=== PATIENT | female | born 1980 | race Hispanic/Latino ===

== ENCOUNTER 2017-11-05 11:40 | Inpatient (IN) | payer OTHER ==
[~2017-11-05] VITALS: Ht 167.6 cm; Wt 99.8 kg
[2017-11-05] MEDS ORDERED: LACTATED RINGERS 1000ML 1,000 ML IV PRN (11:43)
[2017-11-05] MEDS ORDERED: AMPICILLIN 2GM+NS 100ML 100 ML IV SCH (11:45)
[2017-11-05 12:56] LABS: BASOPHILS % (AUTO) 0.3 % (0.0-5.0); EOSINOPHILS % (AUTO) 0.3 % (0.0-8.0); HEMATOCRIT 39.5 % (36-48); LYMPHOCYTES % (AUTO) 19.4 % (21.0-51.0); MEAN CORPUSCULAR HEMOGLOBIN 27.7 pg (27.0-33.0); MEAN CORPUSCULAR HGB CONC 33.6 g/dL (32.0-36.0); MEAN CORPUSCULAR VOLUME 82.4 fL (79-99); MONOCYTES % (AUTO) 8.4 % (3.0-13.0); NEUTROPHILS % (AUTO) 71.6 % (40.0-77.0); PLATELET COUNT (AUTO) 203 K/uL (130-400); RED BLOOD CELL COUNT(AUTO) 4.79 MIL/uL (4.00-5.50); WHITE BLOOD COUNT (AUTO) 8.9 K/uL (4.8-10.8)
[2017-11-05 12:58] LABS: APPEARANCE,URINE Cloudy (CLEAR); BILIRUBIN,URINE Negative (NEGATIVE); COLOR,URINE Yellow (YELLOW); GLUCOSE, URINE (UA) Negative (NEGATIVE); KETONES,URINE Negative (NEGATIVE); LEUKOCYTE ESTERASE ,URINE Large (NEGATIVE); NITRATE,URINE Negative (NEGATIVE); OCCULT BLOOD,URINE Negative (NEGATIVE); PH,URINE 7.5 (5.0-8.0); PROTEIN,URINE Negative (NEGATIVE); UROBILINOGEN,URINE 0.2 mg/dL (0.2-1.0)
[2017-11-05 13:04] LABS: CREATININE 0.6 mg/dL (0.5-1.5); POTASSIUM 4.6 mmol/L (3.5-5.1)
[2017-11-05 13:04] LABS: BACTERIA,URINE Rare /HPF (None Seen); SQUAMOUS EPITHELIAL CELL,UR Many /LPF (0-2)
[2017-11-05 13:08] LABS: ALBUMIN 2.9 g/dL (3.5-5.0); BILIRUBIN,TOTAL 0.3 mg/dL (0.2-1.0); TOTAL PROTEIN, SERUM 6.4 g/dL (6.0-8.3); URIC ACID 4.1 mg/dL (2.6-7.2)
[2017-11-05 13:23] LABS: INR 0.87 (0.85-1.15); PARTIAL THROMBOPLASTIN TIME 26.1 SEC (26.3-35.5); PROTHROMBIN TIME 9.2 SEC (9.6-11.6)
[2017-11-05] MEDS: AMPICILLIN 1GM+NS 50ML 50 ML IV SCH ×2 (16:55→20:55)
[2017-11-05] MEDS: OXYTOCIN 10 USP UNITS/ML 20 UNIT in LACTATED RINGERS 1000ML 1,000 ML IV SCH (23:04)
[2017-11-06] MEDS: AMPICILLIN 1GM+NS 50ML 50 ML IV SCH ×4 (00:54→15:45)
[2017-11-06] MEDS ORDERED: LACTATED RINGERS 1000ML 1,000 ML IV ONE ×3 (02:49→13:20)
[2017-11-06] MEDS ORDERED: OXYTOCIN 10 USP UNITS/ML ONE ×3 (02:50→13:20)
[2017-11-06] MEDS: OXYTOCIN 10 USP UNITS/ML 20 UNIT in LACTATED RINGERS 1000ML 1,000 ML IV SCH (03:26)
[2017-11-06] MEDS ORDERED: OXYTOCIN 10 USP UNITS/ML 20 UNIT in LACTATED RINGERS 1000ML 1,000 ML IV SCH (03:30)
[2017-11-06] MEDS ORDERED: PROMETHAZINE HCL 25 MG/ML 1ML AMPULE IM SCH (07:45)
[2017-11-06] MEDS ORDERED: MEPERIDINE-PF 50 MG/ML SYG SIVP SCH (07:45)
[2017-11-06] MEDS ORDERED: WITCH HAZEL 1 PAD TP PRN (13:00)
[2017-11-06] MEDS ORDERED: ACETAMINOPHEN 325 MG TAB PO PRN (13:00)
[2017-11-06] MEDS ORDERED: BENZOCAINE/LANOLIN/ALOE VERA 60 ML AEROSOL TP PRN (13:00)
[2017-11-06] MEDS ORDERED: DIPH,PERTUSS(ACELL),TET VAC/PF 0.5 ML VIAL IM PRN (13:00)
[2017-11-06] MEDS ORDERED: OXYTOCIN-LR 20 UNITS/1000 ML 1,000 ML IV SCH (13:00)
[2017-11-06] MEDS ORDERED: MEASLES/MUMPS/RUBELLA VACCINE, LIVE 0.5 ML/VIAL SQ PRN (13:00)
[2017-11-06] MEDS ORDERED: LANOLIN 30GM OINTMENT TP PRN (13:00)
[2017-11-06 13:18] LABS: HEPATITIS Bs ANTIGEN SCREEN P Negative (Negative)
[2017-11-06 13:55] VITALS: BP 119/82
[2017-11-06] MEDS ORDERED: GLYB5TAB8 PO (14:09)
[2017-11-06] MEDS ORDERED: PNV1TABL17 PO (14:09)
[2017-11-06] MEDS: IBUPROFEN 600 MG TABLET PO PRN (15:57)
[2017-11-06 16:02] VITALS: BP 135/70
[2017-11-06 19:34] VITALS: BP 126/77
[2017-11-06] MEDS: DOCUSATE SODIUM 100 MG CAP PO SCH (20:52)
[2017-11-06 23:18] VITALS: BP 120/59
[2017-11-07 03:23] VITALS: BP 120/71
[2017-11-07] MEDS: IBUPROFEN 600 MG TABLET PO PRN ×2 (04:30→15:25)
[2017-11-07 06:04] LABS: HEMATOCRIT 33.1 % (36-48); MEAN CORPUSCULAR HEMOGLOBIN 27.8 pg (27.0-33.0); MEAN CORPUSCULAR HGB CONC 33.5 g/dL (32.0-36.0); MEAN CORPUSCULAR VOLUME 83.1 fL (79-99); PLATELET COUNT (AUTO) 151 K/uL (130-400); RED BLOOD CELL COUNT(AUTO) 3.99 MIL/uL (4.00-5.50); RED CELL DISTRIBUTION WIDTH 15.2 % (11.0-15.5); WHITE BLOOD COUNT (AUTO) 11.2 K/uL (4.8-10.8)
[2017-11-07 07:28] VITALS: BP 128/83
[2017-11-07] MEDS: DOCUSATE SODIUM 100 MG CAP PO SCH ×2 (08:46→20:50)
[2017-11-07 11:30] VITALS: BP 127/80
[2017-11-07] MEDS ORDERED: DIPH,PERTUSS(ACELL),TET VAC/PF 0.5 ML VIAL IM SCH (15:00)
[2017-11-07 16:04] VITALS: BP 138/79
[2017-11-07 19:21] VITALS: BP 137/77
[2017-11-07 22:58] VITALS: BP 139/85
[2017-11-08 03:07] VITALS: BP 129/89
[2017-11-08 07:55] VITALS: BP 125/65
[2017-11-08] MEDS: DOCUSATE SODIUM 100 MG CAP PO SCH (09:07)
[2017-11-08] MEDS: IBUPROFEN 600 MG TABLET PO PRN (09:08)
[2017-11-08 11:20] VITALS: BP 117/82
== END 2017-11-08 12:15 | disposition home or self-care (01) | DRG 560 ==
LOC: LDH 11:40 → WSH 11-06 13:55
PROVIDERS: ADMIT Obstetrics & Gynecology; ATTEND Obstetrics & Gynecology
PROC: 10E0XZZ Delivery of Products of Conception, External Approach (ICD-10-PCS; principal; 2017-11-06)
PROC: 0HQ9XZZ Repair Perineum Skin, External Approach (ICD-10-PCS; 2017-11-06)
PROC: 10907ZC Drainage of Amniotic Fluid, Therapeutic from Products of Conception, Via Natural or Artificial Opening (ICD-10-PCS; 2017-11-06)
PROC: 3E033VJ Introduction of Other Hormone into Peripheral Vein, Percutaneous Approach (ICD-10-PCS; 2017-11-06)
PROC: 3E0234Z Introduction of Serum, Toxoid and Vaccine into Muscle, Percutaneous Approach (ICD-10-PCS; 2017-11-06)
DX: O16.4 Unspecified maternal hypertension, complicating childbirth (principal); O24.425 Gestational diabetes mellitus in childbirth, controlled by oral hypoglycemic drugs; O99.824 Streptococcus B carrier state complicating childbirth; O70.0 First degree perineal laceration during delivery; O69.81X0 Labor and delivery complicated by cord around neck, without compression, not applicable or unspecified; Z53.20 Procedure and treatment not carried out because of patient's decision for unspecified reasons; Z37.0 Single live birth; Z3A.38 38 weeks gestation of pregnancy; Z23 Encounter for immunization
CPT/HCPCS: 36415; 80053; 81001; 84550; 85025; 85027; 85384; 85610; 85730; 86592; 86850; 86900; 86901; 87340; 90715; A4351; J0290; J2175; J2550; J2590; J7120

== ENCOUNTER 2022-09-02 05:34 | Observation (INO) | payer OTHER ==
[2022-09-01 12:00] LABS: HEMATOCRIT 44.8 % (36-48); MEAN CORPUSCULAR HEMOGLOBIN 26.9 pg (27.0-33.0); MEAN CORPUSCULAR HGB CONC 32.6 g/dL (32.0-36.0); MEAN CORPUSCULAR VOLUME 82.7 fL (79-99); PLATELET COUNT (AUTO) 241 K/uL (130-400); RED BLOOD CELL COUNT(AUTO) 5.42 MIL/uL (4.00-5.50); RED CELL DISTRIBUTION WIDTH 13.7 % (11.0-15.5); WHITE BLOOD COUNT (AUTO) 7.4 K/uL (4.8-10.8)
[2022-09-01 12:15] LABS: INR 0.98 (0.85-1.15); PROTHROMBIN TIME 10.7 SEC (9.6-11.6)
[2022-09-01 12:16] LABS: PARTIAL THROMBOPLASTIN TIME 30.2 SEC (26.3-35.5)
[2022-09-01 12:21] LABS: APPEARANCE,URINE CLEAR (CLEAR); BILIRUBIN,URINE NEGATIVE (NEGATIVE); COLOR,URINE LIGHT-YELLOW (YELLOW); GLUCOSE, URINE (UA) NEGATIVE (NEGATIVE); KETONES,URINE NEGATIVE (NEGATIVE); LEUKOCYTE ESTERASE ,URINE NEGATIVE Leu/uL (NEGATIVE); NITRATE,URINE NEGATIVE (NEGATIVE); OCCULT BLOOD,URINE NEGATIVE (NEGATIVE); PH,URINE 6.5 (5.0-8.0); PROTEIN,URINE NEGATIVE (NEGATIVE); UROBILINOGEN,URINE 0.2 mg/dL (0.2-1.0)
[2022-09-01 12:32] LABS: LYMPHOCYTES % (MANUAL) 30 % (22-44); MAN.DIFF COMMENT-IMPRESSION MANUAL DIFFERENTIAL; MONOCYTES % (MANUAL) 3 % (2-9); PLATELET MORPHOLOGY COMMENT ADEQUATE; SEGMENTED NEUTROPHILS % 67 % (40-70)
[2022-09-01 14:05] VITALS: BP 136/61
[~2022-09-02] VITALS: Ht 172.7 cm; Wt 94.8 kg
[2022-09-02] VITALS (24 sets, daily range): BP systolic 112–154; BP diastolic 59–94
[~2022-09-02 05:34] MED LIST: KETAMINE HCL 100 MG/ML 5ML VIAL IJ ONE; LEVO137C4 PO; MAGNESIUM SULFATE 1 GM/2 ML VIAL ONE; MONT-39 PO
[2022-09-02] MEDS ORDERED: LACTATED RINGERS 1000ML 1,000 ML IV ONE (05:55)
[2022-09-02] MEDS ORDERED: CEFAZOLIN SODIUM 2 GM VIAL ONE (05:55)
[2022-09-02] MEDS ORDERED: FENTANYL CITRATE PF 50 MCG/1 ML 5ML AMP IV ONE (07:01)
[2022-09-02] MEDS ORDERED: ONDANSETRON 4MG INJ ONE (07:01)
[2022-09-02] MEDS ORDERED: MIDAZOLAM HCL 1 MG/ML 2ML VIAL ONE (07:01)
[2022-09-02] MEDS ORDERED: ROCURONIUM 10MG/1ML SYR 10 MG/ML ML ONE (07:01)
[2022-09-02] MEDS ORDERED: PROPOFOL 10 MG/ML 20ML VIAL IV ONE (07:01)
[2022-09-02] MEDS ORDERED: ACETAMINOPHEN 500 MG TABLET ONE (07:09)
[2022-09-02] MEDS ORDERED: ACETAMINOPHEN 500 MG TABLET PO SCH (07:30)
[2022-09-02] MEDS ORDERED: CEFAZOLIN SODIUM 2 GM VIAL IVPB ONE (08:00)
[2022-09-02] MEDS ORDERED: FENTANYL CITRATE PF 50 MCG/1 ML 2ML VIAL ONE (09:42)
[2022-09-02] MEDS ORDERED: KETOROLAC 30MG VIAL (30MG/ML) ONE ×2 (09:59→10:02)
[2022-09-02] MEDS ORDERED: GLYCOPYRROLATE 1 MG/5 ML SYRINGE ONE (10:05)
[2022-09-02] MEDS ORDERED: NEOSTIGMINE 5MG/5ML SYR IV ONE (10:06)
[2022-09-02] MEDS ORDERED: IBUPROFEN 600 MG TABLET PO PRN (12:00)
[2022-09-02] MEDS ORDERED: BISACODYL 10 MG SUPP.RECT RC PRN (12:00)
[2022-09-02] MEDS ORDERED: ACETAMINOPHEN WITH CODEINE 1 TAB TAB PO PRN (12:00)
[2022-09-02] MEDS ORDERED: PROMETHAZINE HCL 25 MG/ML 1ML AMPULE IM PRN (12:00)
[2022-09-02] MEDS ORDERED: ONDANSETRON 4MG INJ IVP PRN (12:00)
[2022-09-02] MEDS: PROMETHAZINE HCL 25 MG/ML 1ML AMPULE IM PRN ×2 (12:03→19:23)
[2022-09-02] MEDS: MEPERIDINE-PF 75 MG/ML SYG IM PRN ×2 (12:04→19:24)
[2022-09-02] MEDS: DEXTROSE 5 %-0.45 % NACL 1,000 ML IV PRN ×2 (12:43→19:36)
[2022-09-02] MEDS: NITROFURANTOIN MONOHYD/M-CRYST 100 MG CAPSULE PO SCH (20:43)
[2022-09-03 03:57] VITALS: BP 121/62
[2022-09-03] MEDS: DEXTROSE 5 %-0.45 % NACL 1,000 ML IV PRN (04:47)
[2022-09-03 06:04] LABS: HEMATOCRIT 36.9 % (36-48); MEAN CORPUSCULAR HEMOGLOBIN 26.9 pg (27.0-33.0); MEAN CORPUSCULAR HGB CONC 32.8 g/dL (32.0-36.0); RED BLOOD CELL COUNT(AUTO) 4.5 MIL/uL (4.00-5.50); RED CELL DISTRIBUTION WIDTH 13.3 % (11.0-15.5)
[2022-09-03] MEDS ORDERED: HYDROCODONE/ACETAMINOPHEN 5/325 MG TAB PO PRN (07:00)
[2022-09-03 07:21] VITALS: BP 105/58
[2022-09-03] MEDS: IBUPROFEN 800 MG TAB PO PRN ×2 (08:00→14:34)
[2022-09-03] MEDS: NITROFURANTOIN MONOHYD/M-CRYST 100 MG CAPSULE PO SCH ×2 (08:00→20:42)
[2022-09-03] MEDS: DOCUSATE SODIUM 100 MG CAP PO PRN ×2 (08:00→20:42)
[2022-09-03] MEDS: SIMETHICONE 80 MG TAB.CHEW PO PRN ×2 (08:00→20:42)
[2022-09-03 11:10] VITALS: BP 123/80
[2022-09-03 17:00] VITALS: BP 145/72
[2022-09-03 19:42] VITALS: BP 130/86
[2022-09-03] MEDS: ACETAMINOPHEN WITH CODEINE 1 TAB TAB PO PRN (20:45)
[2022-09-03 23:43] VITALS: BP 107/63
[2022-09-04 04:13] VITALS: BP 137/77
[2022-09-04] MEDS: ACETAMINOPHEN WITH CODEINE 1 TAB TAB PO PRN (05:23)
[2022-09-04 07:20] VITALS: BP 122/88
[2022-09-04] MEDS: SIMETHICONE 80 MG TAB.CHEW PO PRN (08:56)
[2022-09-04] MEDS: DOCUSATE SODIUM 100 MG CAP PO PRN (08:56)
[2022-09-04] MEDS: NITROFURANTOIN MONOHYD/M-CRYST 100 MG CAPSULE PO SCH (08:56)
[2022-09-04] MEDS: IBUPROFEN 800 MG TAB PO PRN (08:58)
[2022-09-04 11:47] VITALS: BP 132/71
== END 2022-09-04 13:15 | disposition home or self-care (01) ==
LOC: DAH 05:34 → WSH 05:35 → DAH 05:35
PROVIDERS: ADMIT Obstetrics & Gynecology; ATTEND Obstetrics & Gynecology
DX: N92.1 Excessive and frequent menstruation with irregular cycle (principal); Z20.822 Contact with and (suspected) exposure to COVID-19; N94.6 Dysmenorrhea, unspecified; N81.10 Cystocele, unspecified; N81.6 Rectocele; N39.3 Stress incontinence (female) (male); K46.9 Unspecified abdominal hernia without obstruction or gangrene
CPT/HCPCS: 84703; 85025; 85610; 85730; 86850; 86900; 86901; 87426; 81003; 36415 ×2; 58263; 57265; 57288; 96372; 85027; G0378 ×49; A4663; A4351; A4606; A4344; J7120; J3010 ×2; J3490 ×2; J2710; J2550 ×2; J3475; J2250; J2704; J2405; J1885; J2175 ×2; J0690; C1771; A4649; A4215; A4223; A4222; A4221; A4600; A4510